=== PATIENT | female | born 1990 | race Caucasian/White ===

== ENCOUNTER 2024-10-28 13:07 | Emergency (ER) | payer OTHER ==
[~2024-10-28] VITALS: Ht 170.2 cm; Wt 74.4 kg
[2024-10-28] MEDS ORDERED: ADDERALL 10 MG10 MG (13:28)
[2024-10-28] MEDS ORDERED: IBUPROFEN 600 MG TAB PO ONE (13:45)
[2024-10-28] MEDS ORDERED: HYDROCODONE/ACETA 7.5/325 TAB PO ONE (13:45)
[2024-10-28 14:13] LABS: BILIRUBIN, URINE NEGATIVE (negative); BLOOD/HGB, URINE NEGATIVE (Negative); KETONE, URINE NEGATIVE (Negative); LEUK ESTERASE, URINE NEGATIVE (negative); NITRITE, URINE NEGATIVE (negative)
[2024-10-28] MEDS ORDERED: HYDROCODON-ACE1 EA11 PO (14:30)
[2024-10-28 14:31] VITALS: BP 139/86
== END 2024-10-28 14:40 | disposition home or self-care (01) ==
LOC: ED 13:07
PROVIDERS: Emergency Medicine
DX: S20.211A Contusion of right front wall of thorax, initial encounter (principal); S40.022A Contusion of left upper arm, initial encounter; S80.01XA Contusion of right knee, initial encounter; Z79.899 Other long term (current) drug therapy; Y04.2XXA Assault by strike against or bumped into by another person, initial encounter
CPT/HCPCS: 71046; 81003; 84703; 99284-25; A9270